=== PATIENT | male | born 1990 | race Caucasian/White ===

== ENCOUNTER 2021-08-11 13:25 | Emergency (ER) | payer OTHER ==
[~2021-08-11] VITALS: Ht 180.3 cm; Wt 149.7 kg
[2021-08-11 15:50] LABS: HEMOGLOBIN 15.5 gm/dL (14.0-18.0); MCHC 33.4 g/dL (28.0-37.0); MPV 9.3 fl. (7.2-11.1); RDW-CV 14.3 % (10.5-14.5)
[2021-08-11 15:51] LABS: ABSOLUTE BASOPHILS 0.1 thou/uL (0.0-0.2); ABSOLUTE EOSINOPHILS 0.2 thou/uL (0.0-0.7); ABSOLUTE LYMPHOCYTES 1.9 thou/uL (0.8-5.3); ABSOLUTE MONOCYTES 0.5 thou/uL (0.0-1.2); ABSOLUTE NEUTROPHILS 7.7 thou/uL (1.6-8.1); BASOPHILS 0.7 %; HEMATOCRIT 46.3 % (42.0-52.0); LYMPHOCYTES 18.1 %; MCH 25.9 pg (26.0-34.0); MCV 77.3 fL (80.0-100.0); MONOCYTES 5.2 %; NUCLEATED RBCS 0 /100WBC; PLATELET COUNT* 238 thou/uL (150-400); RBC 5.99 mil/uL (4.50-6.00); WBC 10.5 thou/uL (4.0-11.0)
[2021-08-11 16:13] LABS: CALCIUM 8.7 mg/dL (8.5-10.1); CREATININE 0.8 mg/dL (0.6-1.3); POTASSIUM 4.3 mmol/L (3.5-5.1)
[2021-08-11 16:17] LABS: ALBUMIN 3.9 g/dL (3.4-5.0); MAGNESIUM 1.9 mg/dL (1.8-2.4); TOTAL BILIRUBIN 0.6 mg/dL (<0.1-1.0); TOTAL PROTEIN 8.3 g/dL (6.4-8.2)
[2021-08-11 19:03] VITALS: BP 135/98
--- NOTE | 2021-08-12 10:32 | EKG ---
[place] [address] ELECTROCARDIOGRAM REPORT Name: NESSA JESSICA Room: [facility] [place]#: [id number] Admission: 08/11/21 Attend Phys: Discharge: 08/11/21 Date of : 89 Date of Service: 08/11/21 1331 Report #: [id number] THIS REPORT FOR: //name// [facility] ED Test Date: 2021-08-11 Test Time: 13:31:43 Pat Name: NESSACANDELARIO JESSICA Department: Room: Gender: Block Breaker: [facility] : 1990 Requested By: Jd [address] Order Number: [id number] MD: Mauro La Measurements Intervals [place] Rate: 95 P: 45 IA: 162 QRS: -10 QRSD: 100 T: 17 QT: 351 QTc: 442 Interpretive Statements Sinus rhythm late transtion No previous ECG available for comparison Electronically Signed On 08-12-2021 10:32:50 [employer] by Mauro La [email or web address] <ELECTRONICALLY SIGNED> By: Mauro La MD, [facility] 08/12/21 1032 1331 1331 Mauro La MD, FACC /EPI
== END 2021-08-11 19:03 | disposition home or self-care (01) ==
LOC: M.ERS 13:25
PROVIDERS: Emergency Medicine Emergency Medical Services
DX: R07.89 Other chest pain (principal); R51.9 Headache, unspecified; Z91.02 Food additives allergy status